=== PATIENT | male | born 1950 | race Caucasian/White ===

== ENCOUNTER 2023-07-09 15:44 | Emergency (ER) | payer MEDICARE, OTHER, SELFPAY ==
[2023-07-09 15:44] VITALS: BP 125/64; PULSE 95; RESP 16; TEMP 36.3; O2SAT 96
[2023-07-09 15:46] VITALS: BP 125/64; PULSE 95; RESP 16; TEMP 36.3; O2SAT 96
[2023-07-09 16:09] LABS: Basophils Absolute Auto 0.05 K/mm3 (0.00-0.10); Basophils Percent Auto 0.4 % (0.0-1.0); Eosinophils Absolute Auto 0.01 K/mm3 (0.02-0.50); Eosinophils Percent Auto 0.1 % (1.0-6.0); Hematocrit 41.1 % (37.0-46.0); Hemoglobin 14.3 g/dL (12.4-15.3); Immature Granulocyte Absolute 0.08 K/mm3 (0.00-0.00); Immature Granulocyte Percent A 0.6 % (0.0-0.0); Lymphocytes Absolute Auto 1.04 K/mm3 (1.10-4.50); Lymphocytes Percent Auto 7.4 % (18.0-42.0); Mean Corpuscular HGB Conc 34.8 g/dL (32.0-36.0); Mean Corpuscular Hemoglobin 31.2 pg (27.0-31.0); Mean Corpuscular Volume 89.7 fL (78.0-102.0); Mean Platelet Volume 9.7 fl (8.7-11.0); Monocytes Absolute Auto 2.15 K/mm3 (0.10-0.90); Monocytes Percent Auto 15.3 % (2.0-11.0); Neutrophils Absolute Auto 10.8 K/mm3 (1.7-7.2); Neutrophils Percent Auto 76.2 % (50.0-70.0); Platelet Count Result 205 K/mm3 (150-420); Red Blood Count 4.58 M/mm3 (4.70-6.10); Red Cell Distribution Width 14.3 % (11.6-14.4); White Blood Count 14.1 K/mm3 (4.8-10.8)
[2023-07-09 16:11] LABS: Bilirubin Urine 1+ (Negative); Blood Urine 2+ (Negative); Glucose Urine UA Negative (Negative); Ketones Urine Negative (Negative); Leukocyte Esterase Ur 3+ LEU/UL (Negative); Nitrate Urine Negative (Negative); Protein Urine 2+ (Negative); pH Urine 6.5 (5.0-8.0)
[2023-07-09 16:20] LABS: Add Urine Microscopic? YES; Appearance Urine Turbid (Clear); Color Urine Yellow (Yellow); WBC Clumps Urine Present /hpf; WBC Urine >100 /hpf (0-3)
[2023-07-09 16:21] LABS: Bacteria Urine 2+ /hpf
[2023-07-09 16:22] LABS: Alanine Aminotransferase 12 U/L (16-63); Albumin Level 3.2 g/dL (3.4-5.0); Alkaline Phosphatase 105 U/L (46-116); Anion Gap 10 mmol/L (8-16); Aspartate Amino Transferase 11 U/L (15-37); Bilirubin,Total 1.6 mg/dL (0.00-1.00); Blood Urea Nitrogen 14 mg/dL (7-18); Carbon Dioxide 25 mmol/L (21-32); Chloride 97 mmol/L (98-108); Estimated CRCL calculation 49 ml/min; Estimated Glomerular Filt Rate 48; Glucose 108 mg/dL (70-99); Osmolality Calculated 275 mOsm/kg (285-295); Potassium 3.7 mmol/L (3.5-5.1); Sodium 132 mmol/L (136-145); Total Protein 7.9 g/dL (6.4-8.2)
[2023-07-09 16:30] VITALS: BP 111/59; PULSE 89; RESP 17; O2SAT 96
--- NOTE | 2023-07-09 16:51 | ED.MALEGU ---
HPI - Male Genitourinary General Chief complaint: Urogenital-Male Stated complaint: UTI symptoms Time Seen by Provider: 07/09/23 15:47 Source: patient and family Mode of arrival: ambulatory Limitations: no limitations History of Present Illness HPI Narrative: this is a 73-year-old male with some history of hypertension/depression has having BPH symptoms with urinary frequency and dribbling with dysuria with no flank pain no fever chills no nausea vomiting no diarrhea constipation. The patient had a referral to see Urology but has not seen his urologist yet, and has frequent UTIs, according the patient about 5 UTIs in the last 6 months. Currently no chest pain no shortness of breath. Onset (ago): day(s) Duration: constant Quality: burning Related Data Home Medications Medication Instructions Recorded Confirmed amiodarone 100 mg tablet 100 mg PO DAILY 07/09/23 07/09/23 aspirin 325 mg tablet 325 mg PO Q6H 07/09/23 07/09/23 doxazosin 2 mg tablet 2 mg PO HS 07/09/23 07/09/23 hydrochlorothiazide 25 mg tablet 25 mg PO DAILY 07/09/23 07/09/23 metoprolol tartrate 50 mg tablet 50 mg PO BID 07/09/23 07/09/23 pantoprazole 40 mg tablet,delayed 40 mg PO QAM 07/09/23 07/09/23 release quetiapine 25 mg tablet 25 mg PO HS 07/09/23 07/09/23 venlafaxine 150 mg 150 mg PO DAILY 07/09/23 07/09/23 capsule,extended release 24 hr Allergies Allergy/AdvReac Type Severity Reaction Status Date / Time JOHNSON Inhibitors Allergy Anaphylaxis Verified 07/09/23 15:50 Review of Systems Review of Systems: All systems reviewed & are unremarkable except as noted in HPI and below PMFSH Past Medical History Medical History HTN (hypertension) Exam Const: General: healthy appearing and no acute distress Nutritional Appearance: well nourished Limitations: no limitations HENMT: Head: normal to inspection Eyes: Conjunctivae: conjunctivae normal Pupils: Equal, round and reactive pupils present EOM: EOMs intact bilaterally Direct Ophthalmoscopy: no photophobia Neck: Neck: normal visual inspection Chest: Chest palpation & inspection: normal inspection of the chest Resp: Effort & Inspection: normal respiratory effort Auscultation: clear to auscultation bilaterally Cardio: Rate: regular rate Rhythm: regular rhythm GI: GI Palp: Yes Soft to palpation Auscultation: normal bowel sounds : General: Yes Bladder palpation abnormal ( suprapubic tenderness with palpation) Urinary Catheter: Urinary Catheter: urine clear Back/Spine/Pelvis: Back: no CVA tenderness Skin: General skin exam: normal color Rashes: no rashes Wounds: no wounds Neuro: General: patient oriented x3, moves all extremities and no meningeal signs Extrem: General: normal to inspection Psych: Mental Status: mental status grossly normal Affect: normal affect Course Course Emergency Course: patient had a urinalysis performed which showed abnormal which was abnormal indicating a UTI, labs reviewed [place] [address], and a serum sodium level 132. The patient's vital signs are stable blood pressure 125/64 he is afebrile, patient received 500mg bolus of normal saline along with 1g ceftriaxone. Advised patient can return home and will give patient a list of urologist to have a follow-up for frequent urinary tract infections. Vital Signs Vital signs: Vital Signs Temperature 36.3 C L 07/09/23 15:44 Pulse Rate 95 07/09/23 15:44 Respiratory Rate 16 07/09/23 15:44 Blood Pressure 125/64 07/09/23 15:44 Pulse Oximetry 96 07/09/23 15:44 Oxygen Delivery Room Air 07/09/23 15:44 Temperature 36.3 C L 07/09/23 15:46 Pulse Rate 95 07/09/23 15:46 Respiratory Rate 16 07/09/23 15:46 Blood Pressure 125/64 07/09/23 15:46 Pulse Oximetry 96 07/09/23 15:46 Oxygen Delivery Room Air 07/09/23 15:46 MDM - Male Genitourinary Lab Data 07/09/23 16:05
[2023-07-09] MEDS: SODIUM CHLORIDE 0.9% IV 500 ML 999 ML IV CONT (16:56)
[2023-07-09 17:00] VITALS: BP 102/68; PULSE 84; RESP 17; O2SAT 95
[2023-07-09 17:30] VITALS: BP 101/51; PULSE 82; RESP 17; O2SAT 95
[2023-07-09 17:37] VITALS: BP 100/60; PULSE 82; RESP 17; TEMP 36.9; O2SAT 98
--- NOTE | 2023-07-12 12:24 | PC.NURSE ---
FINAL URINE CULTURE RESULTS: MIXED GENITAL ZEESHAN ISOLATED. NO ACTION NEEDED.
== END 2023-07-09 17:37 | disposition home or self-care (01) ==
PROVIDERS: Emergency Provider Emergency Medicine
DX: N39.0 Urinary tract infection, site not specified (principal); I10 Essential (primary) hypertension; E87.1 Hypo-osmolality and hyponatremia; Z79.82 Long term (current) use of aspirin
CPT/HCPCS: 36415; 80053; 81001; 83605; 85025; 87086; 87088; 96365; 99284; J0696; J7040

== ENCOUNTER 2023-10-31 15:48 | Emergency (ER) | payer MEDICARE, OTHER, SELFPAY ==
[2023-10-31] VITALS (19 sets, daily range): BP systolic 128–166; BP diastolic 80–99; PULSE 71–98; RESP 18–82; TEMP 36.2; O2SAT 96–99
--- NOTE | ~2023-10-31 | CT_ITS ---
EXAMINATION: CT brain wo con DATE: 10/31/2023 16:20 INDICATION: Lightheadedness. TECHNIQUE: Computed tomography (CT) of the head was performed without intravenous contrast. The mA wa s adjusted according to patient size. Iterative reconstruction technique was employed. The dose-lengt h product was 681.00 mGy-cm. COMPARISON: None FINDINGS: There are scattered areas of low attenuation in the cerebral white matter, which is within normal limits for the patient's age. There is no intracranial hemorrhage, acute infarction, or abnorm al intracranial mass lesion. The ventricles are normal in size. There is mild mucosal thickening in t he ethmoid sinuses. The mastoid air cells are normal. There is right posterior scalp soft tissue swel ling. IMPRESSION: 1. Normal aging brain. Reviewed, dictated and finalized at location E. CUTTER IMPRESSION: 1. Normal aging brain.
--- NOTE | ~2023-10-31 | XR_ITS ---
EXAMINATION: XR chest 1V portable DATE: 10/31/2023 16:20 INDICATION: Weakness. TECHNIQUE: A single frontal view of the chest was obtained on 2 radiographs. COMPARISON: None. FINDINGS: There is no pneumonia, pleural effusion, or pneumothorax. The heart size is normal. There a re healing/healed left rib fractures. IMPRESSION: 1. No acute cardiopulmonary disease. Reviewed, dictated and finalized at location E. [employer] BILLING SPECIALIST
--- NOTE | 2023-10-31 15:54 | ED.WEAKNESS ---
HPI - Weakness General Chief complaint: Weakness Stated complaint: WEAKNESS Time Seen by Provider: 10/31/23 15:50 Source: patient Mode of arrival: ambulatory Limitations: no limitations History of Present Illness HPI Narrative: 73 year old male presents to the Emergency Department complaining of bilateral leg weakness and feeling a little light headed. Onset yesterday. Slept all day yesterday. Denies headache, visual changes, cough, congestion, chest pain or shortness of breath. Denies nausea, vomiting, diarrhea, abdominal pain. Denies urinary frequency or dysuria. states this is how urinary tract infections have stared in the past. Onset (ago): day(s) (1) Location: LLE and RLE Migration: none Severity: mild Relieving factors: none Exacerbating factors: none Associated symptoms: denies other symptoms Related Data Home Medications Medication Instructions Recorded Confirmed amiodarone 100 mg tablet 100 mg PO DAILY 07/09/23 10/31/23 aspirin 325 mg tablet 325 mg PO Q6H 07/09/23 10/31/23 doxazosin 2 mg tablet 2 mg PO HS 07/09/23 10/31/23 hydrochlorothiazide 25 mg tablet 25 mg PO DAILY 07/09/23 10/31/23 metoprolol tartrate 50 mg tablet 50 mg PO BID 07/09/23 10/31/23 pantoprazole 40 mg tablet,delayed 40 mg PO QAM 07/09/23 10/31/23 release quetiapine 25 mg tablet 25 mg PO HS 07/09/23 10/31/23 venlafaxine 150 mg 150 mg PO DAILY 07/09/23 10/31/23 capsule,extended release 24 hr Allergies Allergy/AdvReac Type Severity Reaction Status Date / Time JOHNSON Inhibitors Allergy Anaphylaxis Verified 10/31/23 16:13 Review of Systems Review of Systems: All systems reviewed & are unremarkable except as noted in HPI and below Constitutional: Constitutional: Reports as per HPI, Reports no additional constitutional complaints, Denies chills and Denies fever(s) Eyes: Eyes: Reports as per HPI and Reports no additional eye complaints ENT: Reports system reviewed and no additional complaints, except as documented, Denies vertigo and Denies dizziness Cardiovascular: Cardiovascular: Reports as per HPI and Denies chest pain Respiratory: Respiratory: Reports as per HPI, Reports no additional respiratory complaints, Denies cough and Denies dyspnea Gastrointestinal: Gastrointestinal: Reports as per HPI, Reports no additional gastrointestinal complaints, Denies abdominal pain, Denies diarrhea, Denies nausea and Denies vomiting Genitourinary: Genitourinary: Reports no additional male genitourinary complaints, Denies dysuria and Denies urinary frequency Musculoskeletal: Musculoskeletal: Reports no additional musculoskeletal complaints Comments: legs feel weak Integumentary/Breasts: Skin/Breast: Reports system reviewed and no additional complaints, except as docu Neurologic: Reports system reviewed and no additional complaints, except as documented Comments: legs feel weak, feels light headed Psychiatric: Psychiatric: Reports no additional psychiatric complaints Endocrine: Endocrine: Reports no additional endocrine complaints Hematologic/Lymphatic: Hematologic/Lymphatic: Reports no additional hematologic/lymphatic complaints Allergic/Immunologic: Allergic/Immunologic: Reports no additional allergic/immunologic complaints PMFSH Past Medical History Medical History HTN (hypertension) Exam Const: General: healthy appearing, no acute distress and alert Nutritional Appearance: well nourished Orientation/consciousness: patient oriented x3 Limitations: no limitations HENMT: Head: normal to inspection Ears: external ears normal Face/Nose/Sinus: Normal external nose present Face and sinus: normal facial exam Mouth: Yes Normal oral and palatal mucosa present Teeth and gingiva: dentition normal Throat: posterior oropharynx normal Eyes: Conjunctivae: conjunctivae normal Pupils: Equal, round and reactive pupils present EOM: EOMs intact bilaterally Direct Ophtha
--- NOTE | 2023-10-31 15:55 | ECG_ITS ---
Measurements Intervals [place] Rate: 89 P: IN: 0 QRS: 41 QRSD: 90 T: 34 QT: 368 QTc: 449 Interpretive Statements ATRIAL FIBRILLATION BASELINE ARTIFACT- II, III, AVF, V1 ABNORMAL ECG NO PREVIOUS ECG AVAILABLE FOR COMPARISON Electronically Signed On 10-31-2023 17:51:34 SALES OFFICE ASSISTANT by Jasbir Terry D.O.
[2023-10-31 16:13] LABS: Basophils Absolute Auto 0.08 K/mm3 (0.00-0.10); Basophils Percent Auto 0.9 % (0.0-1.0); Eosinophils Absolute Auto 0.19 K/mm3 (0.02-0.50); Hematocrit 46.7 % (37.0-46.0); Hemoglobin 15.4 g/dL (12.4-15.3); Immature Granulocyte Absolute 0.07 K/mm3 (0.00-0.00); Immature Granulocyte Percent A 0.7 % (0.0-0.0); Lymphocytes Absolute Auto 1.11 K/mm3 (1.10-4.50); Lymphocytes Percent Auto 11.8 % (18.0-42.0); Mean Corpuscular Hemoglobin 29.6 pg (27.0-31.0); Mean Corpuscular Volume 89.6 fL (78.0-102.0); Mean Platelet Volume 9.3 fl (8.7-11.0); Monocytes Absolute Auto 0.75 K/mm3 (0.10-0.90); Neutrophils Absolute Auto 7.2 K/mm3 (1.7-7.2); Neutrophils Percent Auto 76.6 % (50.0-70.0); Platelet Count Result 282 K/mm3 (150-420); Red Blood Count 5.21 M/mm3 (4.70-6.10); Red Cell Distribution Width 14.3 % (11.6-14.4); White Blood Count 9.4 K/mm3 (4.8-10.8)
[2023-10-31 16:25] LABS: Appearance Urine Clear (Clear); Bilirubin Urine 1+ (Negative); Blood Urine 2+ (Negative); Color Urine Yellow (Yellow); Glucose Urine UA Negative (Negative); Ketones Urine Negative (Negative); Leukocyte Esterase Ur 3+ (Negative); Nitrate Urine Negative (Negative); Protein Urine 2+ (Negative); Specific Grav Ur 1.015 (1.010-1.020)
[2023-10-31 16:30] LABS: Add Urine Microscopic? YES; WBC Urine >75 /hpf (0-3)
[2023-10-31] MEDS: SODIUM CHLORIDE 0.9% IV 1,000 ML 999 ML IV CONT (16:30)
[2023-10-31 16:31] LABS: Bacteria Urine 3+ /hpf
[2023-10-31 16:33] LABS: Alanine Aminotransferase 14 U/L (16-63); Albumin Level 3.2 g/dL (3.4-5.0); Alkaline Phosphatase 139 U/L (46-116); Anion Gap 12 mmol/L (8-16); Aspartate Amino Transferase 11 U/L (15-37); Bilirubin,Total 0.5 mg/dL (0.00-1.00); Blood Urea Nitrogen 21 mg/dL (7-18); Calcium 8.8 mg/dL (8.5-10.1); Carbon Dioxide 26 mmol/L (21-32); Chloride 95 mmol/L (98-108); Estimated CRCL calculation 39 ml/min; Estimated Glomerular Filt Rate 42; Glucose 163 mg/dL (70-99); Osmolality Calculated 283 mOsm/kg (285-295); Potassium 3.5 mmol/L (3.5-5.1); Sodium 133 mmol/L (136-145); Total Protein 8.1 g/dL (6.4-8.2)
[2023-10-31 16:42] LABS: Lactic Acid Reflex 3.8 mmol/L (0.4-2.0)
[2023-10-31 16:50] LABS: Influenza A QL RT-PCR Negative (Negative); Influenza B QL RT-PCR Negative (Negative); RSV RNA, RT-PCR Negative (Negative); SARS-CoV-2 RNA PCR Negative (Negative)
[2023-10-31] MEDS: cefTRIAXone 2 GM/NS 100 ML 2 GM/100 ML BAG IVPB (17:06)
--- NOTE | 2023-10-31 17:07 | PC.NURSE ---
PT REPORTS HE IS STARTING FEEL BETTER WITH IVF. FAMILY AT BEDSIDE. PT HAS IV ABX AND FLUIDS INFUSING ORDERED WITHOUT DIFFICULTY. NAD NOTED. VSS PER MONITOR. WILL CONTINUE TO MONITOR.
== END 2023-10-31 17:50 | disposition home or self-care (01) ==
PROVIDERS: Emergency Provider Emergency Medicine; PCP Family Medicine
DX: N39.0 Urinary tract infection, site not specified (principal); E86.0 Dehydration; R53.1 Weakness; R42 Dizziness and giddiness; I10 Essential (primary) hypertension; Z79.899 Other long term (current) drug therapy; Z79.82 Long term (current) use of aspirin; Z20.822 Contact with and (suspected) exposure to COVID-19
CPT/HCPCS: 36415; 70450; 71045; 80053; 81001; 83605; 84484; 85025; 87637; 93005; 96361; 96365; 99284; J0696; J7030

== ENCOUNTER 2024-03-07 11:10 | Emergency (ER) | payer MEDICARE, OTHER, SELFPAY ==
[2024-03-07 11:18] VITALS: BP 145/71; PULSE 68; RESP 18; TEMP 36.4; O2SAT 98
--- NOTE | 2024-03-07 11:56 | ED.URI ---
HPI - URI/Sore Throat General Chief Complaint: Upper Respiratory Infection Stated Complaint: Sore Throat Time Seen by Provider: 03/07/24 11:53 Source: patient and RN notes reviewed Mode of arrival: ambulatory Limitations: no limitations History of Present Illness HPI Narrative: Patient presents today complaining of sore throat since yesterday. Denies any additional symptoms. Currently rates pain 3/10 and has been taking Tylenol with mild relief. States his , daughter, and grandchild have strep an olive in his home. Related Data Home Medications Medication Instructions Recorded Confirmed amiodarone 100 mg tablet 100 mg PO DAILY 07/09/23 03/07/24 doxazosin 2 mg tablet 2 mg PO HS 07/09/23 03/07/24 hydrochlorothiazide 25 mg tablet 25 mg PO DAILY 07/09/23 03/07/24 metoprolol tartrate 50 mg tablet 50 mg PO BID 07/09/23 03/07/24 pantoprazole 40 mg tablet,delayed 40 mg PO QAM 07/09/23 03/07/24 release quetiapine 25 mg tablet 25 mg PO HS 07/09/23 03/07/24 venlafaxine 150 mg 150 mg PO DAILY 07/09/23 03/07/24 capsule,extended release 24 hr Allergies Allergy/AdvReac Type Severity Reaction Status Date / Time JOHNSON Inhibitors Allergy Anaphylaxis Verified 03/07/24 11:19 Review of Systems Review of Systems: CONSTITUTIONAL: Denies body aches, fever, chills, or sweats. EYES: Denies visual changes, redness, or discharge. ENT: Denies rhinorrhea, congestion, or otalgia.+ sore throat CARDIOVASCULAR: Denies chest pain, palpitations, or edema. RESPIRATORY: Denies cough or dyspnea. GASTROINTESTINAL: Denies abdominal pain, nausea, vomiting, or diarrhea. GENITOURINARY: Denies dysuria or hematuria. SKIN: Denies rash, itching, or wounds. MUSCULOSKELETAL: Denies back pain, joint pain, or myalgia. NEUROLOGIC: Denies headache, numbness, tingling, or weakness. PSYCH: Denies depression or anxiety. [facility] Past Medical History Medical History HTN (hypertension) Comments At time of signature, I have reviewed and agree with nursing past medical, surgical, social and family history unless otherwise noted. Please see nursing chart for further information. There is no relevant family history pertinent to the presenting complaint Exam Narrative: GENERAL: Well-appearing, well-nourished, and in no acute distress. HEAD: Normocephalic, atraumatic. EYES: EOMI. No redness or drainage. Conjunctivae normal. ENT: Mucous membranes pink and moist. Nares clear. No rhinorrhea. TMs normal bilaterally. Throat mildly erythematous without edema or exudate. Uvula midline. NECK: Normal AROM. Supple. No lymphadenopathy. CHEST: No respiratory distress. Clear to auscultation. HEART: Regular rate and rhythm. No murmur appreciated. EXTREMITIES: Normal range of motion. No edema. SKIN: Warm, dry, no rash. Capillary refill normal. Normal skin turgor. NEURO: No focal deficits. Alert and oriented x3. Gait steady with cane. PSYCH: Normal affect. No signs of depression or anxiety. Course Course Level of Care: Express Care Visit Vital Signs Vital signs: Vital Signs Temperature 97.6 F 03/07/24 11:18 Pulse Rate 68 03/07/24 11:18 Respiratory Rate 18 03/07/24 11:18 Blood Pressure 145/71 H 03/07/24 11:18 Pulse Oximetry 98 03/07/24 11:18 Oxygen Delivery Room Air 03/07/24 11:18 Temperature 97.6 F 03/07/24 11:18 Pulse Rate 68 03/07/24 11:18 Respiratory Rate 18 03/07/24 11:18 Blood Pressure 145/71 H 03/07/24 11:18 Pulse Oximetry 98 03/07/24 11:18 Oxygen Delivery Room Air 03/07/24 11:18 Reviewed MDM - URI/Sore Throat MDM Narrative Medical decision making narrative: Rapid strep negative. Culture pending. Symptoms may be too early to detect strep throat given patient's home exposures. Will wait for culture to prescribe antibiotics. Possible viral illness swell. Discussed [id number] medication use. Anticipatory guidance given. Differ
== END 2024-03-07 11:59 | disposition home or self-care (01) ==
PROVIDERS: Emergency Provider Nurse Practitioner; PCP Family Medicine
DX: J02.9 Acute pharyngitis, unspecified (principal); I10 Essential (primary) hypertension
CPT/HCPCS: 87081; 87880; 99213; G0463